=== PATIENT | male | born 2005 | race Caucasian/White ===

== ENCOUNTER 2023-04-21 11:23 | Day surgery (SDC) | payer MEDICAID, OTHER ==
[~2023-04-21] VITALS: Ht 193 cm; Wt 141.4 kg
[~2023-04-21 11:23] MED LIST: ceFAZolin SOD 1 GM in D5W MINI-BAG PLUS 50 ML IV ONE; ceFAZolin SOD 2 GM in IV 1 EA IV ONE
[2023-04-21] MEDS ORDERED: LR 1,000 ML IV SCH ×2 (11:55→13:50)
[2023-04-21] MEDS ORDERED: propofoL 200 MG/20 ML VIAL As Ordered ONE ×2 (12:29→12:32)
[2023-04-21] MEDS ORDERED: ONDANSETRON 4MG 2ML VIAL As Ordered ONE (12:29)
[2023-04-21] MEDS ORDERED: fentaNYL 100 MCG/2 ML INJECTION As Ordered ONE (12:29)
[2023-04-21] MEDS ORDERED: LIDOCAINE 2% 100MG/5ML SDV (FOR ANES.) As Ordered ONE (12:29)
[2023-04-21] MEDS ORDERED: MIDAZOLAM INJ 2MG/2ML VIAL As Ordered ONE (12:30)
[2023-04-21] MEDS ORDERED: ROCURONIUM BROMIDE 50MG/5ML VIAL As Ordered ONE (12:46)
[2023-04-21] MEDS ORDERED: SUGAMMADEX SODIUM 500 MG/5 ML VIAL (BRIDION) As Ordered ONE (12:46)
[2023-04-21] MEDS ORDERED: ISOVUE-300 61% 100ML VIAL As Ordered ONE (12:49)
[2023-04-21] MEDS ORDERED: ONDANSETRON 4MG 2ML VIAL IV PRN (13:50)
[2023-04-21] MEDS ORDERED: fentaNYL 100 MCG/2 ML INJECTION IV PRN (13:50)
[2023-04-21 14:45] VITALS: BP 157/94; TEMP 97.4; O2SAT 100
[2023-04-21] MEDS ORDERED: PERCOCET 5MG/325MG TAB PO PRN (16:30)
== END 2023-04-21 15:02 | disposition home or self-care (01) ==
LOC: M SDC 11:23
PROVIDERS: ATTEND Urology
DX: N20.1 Calculus of ureter (principal)
CPT/HCPCS: 52356; 76000; 82365; C1769; C1894; C2617; J0690; J1100; J2250; J2405; J3010; Q9967

== ENCOUNTER → 2024-05-22 | Outpatient (CLI) | payer OTHER ==
[2024-05-22 14:19] LABS: APPEARANCE, URINE CLEAR (CLEAR); BACTERIA, URINE AUTO NEGATIVE (NEGATIVE); BILIRUBIN, URINE AUTO NEGATIVE (NEGATIVE); BLOOD, URINE BLOOD NEGATIVE (NEGATIVE); COLOR, URINE YELLOW (YELLOW); GLUCOSE, URINE (UA) AUTO NEGATIVE (NEGATIVE); KETONE, URINE AUTO NEGATIVE (NEGATIVE); LEUKOCYTE ESTERASE, URINE AUTO NEGATIVE (NEGATIVE); MUCUS, URINE SMALL (NEGATIVE); NITRITE, URINE AUTO NEGATIVE (NEGATIVE); PROTEIN, URINE AUTO NEGATIVE (NEGATIVE); RBC, URINE AUTO 0 /HPF (0-3); SPECIFIC GRAVITY URINE AUTO 1.021 (1.002-1.035); SQUAMOUS EPITHELIAL CELL UR AU 0 /HPF (0-6); UROBILINOGEN, URINE AUTO 0.2 mg/dL (0.0-2.0); WBC, URINE AUTO 1 /HPF (0-3)
== END ==
LOC: M PLAIMG 10:36
PROVIDERS: ATTEND Urology
DX: N20.0 Calculus of kidney (principal)